=== PATIENT | female | born 1975 | race Caucasian/White ===

== ENCOUNTER 2017-01-24 05:34 | Day surgery (SDC) | payer BC ==
[~2017-01-24] VITALS: Ht 165.1 cm; Wt 67.2 kg
[~2017-01-24 05:34] MED LIST: FERR-18 PO; PREN1TAB49 PO; PRO20 PO
[2017-01-24 06:51] VITALS: Ht 165.1 cm; Wt 67.2 kg
[2017-01-24 07:08] VITALS: BP 109/53; PULSE 71; RESP 18
[2017-01-24] MEDS ORDERED: FENTAnyl 50 MCG/ML VIAL ONE (07:35)
[2017-01-24] MEDS ORDERED: MIDAZOLAM 1 MG/ML 2 ML INJ ONE (07:35)
[2017-01-24 07:56] VITALS: BP 102/57; PULSE 66; RESP 11
--- NOTE | 2017-01-24 08:16 | GILP ---
DATE OF PROCEDURE: 01/24/2017 NAME OF PROCEDURES: Esophagogastroduodenoscopy and biopsy. SURGEON: Sofia Thurston MD PREOPERATIVE DIAGNOSES: 1. Chronic heartburn. 2. Nausea. POSTOPERATIVE DIAGNOSES: 1. Gastritis with erosions. 2. Gastric mucosal biopsies were taken for Helicobacter pylori test. 3. Gastroesophageal reflux disease. INDICATION FOR THE PROCEDURE: Ms. Brittanie Villavicencio is a 41-year-old female patient who had ch ronic heartburn and nausea not responding to therapy. The patient was scheduled for endoscopic exam ination for further evaluation. The procedure and possible complications were well explained to the patient. The patient understood and consented to the procedure. DESCRIPTION OF PROCEDURE: Under the influence of fentanyl and Versed, the gastroscope was carefully introduced into the esophagus, and under direct vision, it was advanced to the stomach and through the pylorus into the duodenal bulb and descending duodenum. FINDINGS: ESOPHAGUS: The patient had gastroesophageal reflux disease, but the esophageal mucosa was normal. STOMACH: She had gastritis with erosions. Gastric mucosal biopsies were taken for H. pylori test. DUODENUM: Normal. She tolerated the procedure very well, and there was no complication from the procedure. At the end of the procedure, she was awake with stable vital signs, and she was discharged home to the care of her family. IMPRESSION: 1. Gastroesophageal reflux disease. 2. Gastritis with erosions. 3. Gastric mucosal biopsies were taken for Helicobacter pylori test. PLAN: 1. Nexium 24 hours p.o. q. a.m. 2. Await H. pylori test report. Dictated By: SOFIA WINTER/PAULA Conf#: [id number] DID#: [id number]
--- NOTE | 2017-01-27 13:09 | CONS ---
DATE OF ADMISSION: 01/24/2017 DATE OF CONSULTATION: 12/27/2016 TYPE OF CONSULTATION: Preoperative gastroenterology. Dear Drs. Renee and Denisha, I thank you very much for this kind referral. Ms. Brittanie eubanks is a 41-year-old female patient who has been referred to me for further evaluation of chronic he artburn and nausea not responding to therapy. There is no past history of peptic ulcer disease. Jaleel patel is not taking any nonsteroidal anti-inflammatory agents. Her appetite has been good, and she is n ot losing any weight. There is no history of gallstones. She does not have any fever, chills or ja undice. There is no history of liver disease. She denies any change in the bowel habit or rectal b leeding. There is no past history of inflammatory bowel disease. She is not hypertensive or diabet ic. She does not have any heart disease or lung problem. There is no history of kidney disease. SOCIAL HISTORY: She is a nonsmoker. She does not abuse alcohol. FAMILY HISTORY: Particular for the history of pancreatic cancer in her uncle. ALLERGIES: THERE IS NO HISTORY OF SIGNIFICANT DRUG ALLERGY. MEDICATIONS: None. PHYSICAL EXAMINATION: VITAL SIGNS: She is 5 feet 5 inches tall and she weighs 156 pounds. HEART: Examination of the heart reveals normal first and second heart sounds. LUNGS: Clear. ABDOMEN: Soft without any distention. Liver and spleen are not palpable. There are no masses. Th ere is no focal tenderness. Normal bowel sounds are heard. CENTRAL NERVOUS SYSTEM: Examination does not reveal any focal neurological deficit. IMPRESSION: 1. Chronic heartburn and nausea not responding to therapy. 2. Patient's uncle had pancreatic cancer. PLAN: Endoscopic examination for further evaluation. The procedure and possible complications are well explained to the patient. She understands and con sents to the procedure. I thank you once again with warmest personal regards. Dictated By: SOFIA WINTER/PAULA Conf#: [id number] DID#: [id number]
== END 2017-01-24 08:54 | disposition home or self-care (01) ==
LOC: GIL 05:34
PROVIDERS: ATTEND Internal Medicine Gastroenterology
DX: K29.60 Other gastritis without bleeding (principal); K21.9 Gastro-esophageal reflux disease without esophagitis
CPT/HCPCS: 43239; 84703; 87081; J2250; J3010; Z7610